=== PATIENT | female | born 1990 | race African-American/Black ===

== ENCOUNTER 2018-03-06 06:54 | Emergency (ER) | payer MEDICAID ==
[~2018-03-06] VITALS: Ht 165.1 cm; Wt 82.0 kg
[2018-03-06] MEDS ORDERED: KETOROLAC 30MG/ML VIAL IV ONE (07:30)
[2018-03-06] MEDS ORDERED: SODIUM CHLORIDE 0.9% 1,000 ML IV ONE (07:30)
[2018-03-06] MEDS ORDERED: MORPHINE SULFATE 4 MG/ML CPJ (NOT FOR IM USE) IV ONE (08:30)
[2018-03-06 09:55] VITALS: BP 106/70
== END 2018-03-06 10:00 | disposition home or self-care (01) ==
LOC: ER 07:16
DX: G50.0 Trigeminal neuralgia (principal); R51 Headache; Z88.0 Allergy status to penicillin
CPT/HCPCS: 81025; 96361; 96374; 96375; 99285; J1885; J2270; J7030; Z7610